=== PATIENT | male | born 1970 | race American Indian/Alaskan Native ===

== ENCOUNTER 2022-04-03 15:12 | Emergency (ER) | payer MEDICAID ==
[2022-04-03] MEDS ORDERED: LIDOCAINE VISCOUS 2% 15 ML ORAL LIQD MM STA (22:33)
--- NOTE | 2022-04-03 22:57 | Emergency Department Report ---
ED General Adult HPI - General Chief complaint: Rectal Pain Stated complaint: HEMORHOIDS Time Seen by Provider: 04/03/22 22:33 Source: patient Mode of arrival: Ambulatory Limitations: No Limitations - History of Present Illness Initial comments: Patient 51-year-old male who presents for hemorrhoids x4 days. This is a recurrent problem for this patient. Patient denies fevers or chills patient is making bowel movements there is no bloody stools. Pain is described at 4/10 burning itching. Patient denies other symptoms. There is no nausea vomiting or abdominal pain. Severity scale (0 -10): 8 - Related Data Previous Rx's Medication Instructions Recorded Last Taken Type Hydrocortisone/Pramoxine 1 applic TP BID #1 tube 04/03/22 Unknown Rx [Hydrocort-Pramoxine 2.5-1% Crm] Lidocaine [Lidocaine CREAM] 1 applicatio TP QID PRN #1 tube 04/03/22 Unknown Rx traMADoL [Ultram] 50 mg PO Q6HR PRN #12 tablet 04/03/22 Unknown Rx Allergies Allergy/AdvReac Type Severity Reaction Status Date / Time No Known Allergies Allergy Verified 04/03/22 22:48 ED Review of Systems ROS: Stated complaint: HEMORHOIDS Other details as noted in HPI Constitutional: denies: chills, fever Eyes: denies: eye pain, eye discharge, vision change ENT: denies: ear pain, throat pain Respiratory: denies: cough, shortness of breath, wheezing Cardiovascular: denies: chest pain, palpitations Endocrine: no symptoms reported Gastrointestinal: other (External hemorrhoid). denies: abdominal pain, nausea, vomiting, diarrhea Genitourinary: denies: urgency, dysuria Musculoskeletal: denies: back pain, joint swelling, arthralgia Skin: denies: rash, lesions Neurological: denies: headache, weakness, paresthesias Psychiatric: denies: anxiety, depression Hematological/Lymphatic: denies: easy bleeding, easy bruising ED Past Medical Hx - Past Medical History Additional medical history: Hemorrhoids - Medications Home Medications: Home Medications Medication Instructions Recorded Confirmed Last Taken Type Hydrocortisone/Pramoxine 1 applic TP BID #1 tube 04/03/22 Unknown Rx [Hydrocort-Pramoxine 2.5-1% Crm] Lidocaine [Lidocaine CREAM] 1 applicatio TP QID PRN #1 tube 04/03/22 Unknown Rx traMADoL [Ultram] 50 mg PO Q6HR PRN #12 tablet 04/03/22 Unknown Rx ED Physical Exam - General Limitations: No Limitations General appearance: alert, in no apparent distress - Head Head exam: Present: atraumatic, normocephalic - Eye Eye exam: Present: normal appearance, EOMI Pupils: Present: normal accommodation - ENT ENT exam: Present: mucous membranes moist - Neck Neck exam: Present: normal inspection, full ROM. Absent: tenderness, lymphadenopathy - Respiratory Respiratory exam: Present: normal lung sounds bilaterally. Absent: respiratory distress, wheezes, stridor, chest wall tenderness - Cardiovascular Cardiovascular Exam: Present: regular rate, normal rhythm, normal heart sounds. Absent: systolic murmur, diastolic murmur, rubs, gallop - GI/Abdominal GI/Abdominal exam: Present: soft, normal bowel sounds. Absent: distended, tenderness, guarding, rebound, rigid, bruit, hernia - Rectal Rectal exam: Present: hemorrhoids (External hemorrhoid at 3:00 nonthrombosed no erythema no bleeding) - Extremities Exam Extremities exam: Present: normal inspection, full ROM, normal capillary refill. Absent: tenderness - Back Exam Back exam: Present: normal inspection, full ROM. Absent: CVA tenderness (R), CVA tenderness (L) - Neurological Exam Neurological exam: Present: alert, oriented X3, CN II-XII intact, normal gait - Psychiatric Psychiatric exam: Present: normal affect, normal mood - Skin Skin exam: Present: warm, dry, intact, normal color. Absent: rash ED Course Vital Signs 04/03/22 17:56 Temperature 98.9 F Pulse Rate 72 Respiratory 14 Rate Blood Pressure 163/95 [Right] O2 Sat by Pulse 98 Oximetry ED Medical Decision Making - Medical Decision Making Is a nonthrombosed external hemorrhoids, patient is having bowel movements without difficulty. There is no abdominal pain no nausea or vomiting. No hematochezia. Plan DC home with prescriptions, follow-up with primary care doctor in 2 to 3 days. Patient verbalized agreement understanding of discharge plan patient DC'd home in stable condition at this time. Critical care attestation.: If time is entered above; I have spent that time in minutes in the direct care of this critically ill patient, excluding procedure time. ED Disposition Clinical Impression: Acute hemorrhoid Disposition: 01 HOME / SELF CARE / HOMELESS Is pt being admited?: No Does the pt Need Aspirin: No Condition: Stable Instructions: Nonsurgical Procedures for Hemorrhoids, Hemorrhoids, [id number] Additional Instructions: Take medication as prescribed, hot sitz bath as discussed and agreed, follow-up with your doctor in 2 to 3 days. Return to emergency department should symptoms worsen. Prescriptions: Hydrocortisone/Pramoxine [Hydrocort-Pramoxine 2.5-1% Crm] 1 applic TP BID #1 tube Lidocaine [Lidocaine CREAM] 1 applicatio TP QID PRN #1 tube PRN Reason: Pain , Severe (7-10) traMADoL [Ultram] 50 mg PO Q6HR PRN #12 tablet PRN Reason: Pain Referrals: [facility] [Provider Group] - 3-5 Days Forms: Work/School Release Form(ED) Time of Disposition: 23:04
[2022-04-03 23:29] VITALS: BP 167/91
== END 2022-04-04 00:24 | disposition home or self-care (01) ==
LOC: ED 15:12
DX: K64.9 Unspecified hemorrhoids (principal)
CPT/HCPCS: 99282